=== PATIENT | male | born 1960 | race African-American/Black ===

== ENCOUNTER 2017-08-14 18:50 | Emergency (ER) | payer OTHER ==
[~2017-08-14] VITALS: Ht 188 cm; Wt 91.0 kg
[~2017-08-14 18:50] MED LIST: AMIODARONE; ASPI-1159 PO; CARV6.2548 PO; FURO20TA4 PO; GEMF600T3 PO; LEVE500T78 PO; LISI10TA5 PO; OMEP20CA10 PO; SPIR1POW3 MC
[2017-08-14] MEDS ORDERED: FOLIC ACID 1 MG, THIAMINE HCL 100 MG, MVI, ADULT NO.1 10 ML in DEXTROSE 5% WATER 1,000 ML IV ONE ×4 (20:00)
[2017-08-14] MEDS ORDERED: BACITRACIN ZINC OINT UDPKT TOP ONE (20:00)
[2017-08-14] MEDS ORDERED: KETOROLAC 30MG/ML VIAL IV ONE (22:30)
[2017-08-14 22:35] VITALS: BP 127/79
== END 2017-08-14 23:15 | disposition home or self-care (01) ==
LOC: ER 18:50
DX: F10.129 Alcohol abuse with intoxication, unspecified (principal); S80.01XA Contusion of right knee, initial encounter; S50.01XA Contusion of right elbow, initial encounter; S80.211A Abrasion, right knee, initial encounter; W01.0XXA Fall on same level from slipping, tripping and stumbling without subsequent striking against object, initial encounter; I10 Essential (primary) hypertension; I25.2 Old myocardial infarction; Z79.82 Long term (current) use of aspirin
CPT/HCPCS: 73080; 73562; 96365; 96375; 99284; J1885; J3411; J3490; J7070; Z7610